=== PATIENT | male | born 1965 | race Caucasian/White ===

== ENCOUNTER → 2023-07-18 13:17 | Outpatient (REF) | payer BC, SELFPAY | LOC: RAD 13:17 | PROVIDERS: ATTENDING PHYSICIAN Psychiatry & Neurology Neurology | DX: M54.2 Cervicalgia (principal); Z87.39 Personal history of other diseases of the musculoskeletal system and connective tissue | CPT/HCPCS: 70100; 72052 ==

== ENCOUNTER → 2023-08-03 15:44 | Outpatient (REF) | payer BC, SELFPAY | LOC: RAD 15:44 | PROVIDERS: ATTENDING PHYSICIAN Family Medicine | DX: M25.551 Pain in right hip (principal); M54.50 Low back pain, unspecified | CPT/HCPCS: 72110; 73502 ==

== ENCOUNTER → 2023-08-14 14:33 | Outpatient (REF) | payer BC, SELFPAY | LOC: PAVMRI 14:33 | PROVIDERS: ATTENDING PHYSICIAN Physician Assistant Medical; FAMILY PHYSICIAN Family Medicine | DX: M54.2 Cervicalgia (principal); M79.601 Pain in right arm; M47.12 Other spondylosis with myelopathy, cervical region | CPT/HCPCS: 72141 ==

== ENCOUNTER 2023-09-18 18:32 | Outpatient (RCR) | payer BC, SELFPAY | END 2023-09-18 23:59 | disposition home or self-care (01) | LOC: RPT 18:32 | PROVIDERS: ATTENDING PHYSICIAN Physician Assistant Medical; FAMILY PHYSICIAN Family Medicine | DX: M54.2 Cervicalgia (principal); M79.601 Pain in right arm; Z73.6 Limitation of activities due to disability | CPT/HCPCS: 97110; 97112; 97140; 97163 ==

== ENCOUNTER 2023-10-09 17:47 | Outpatient (RCR) | payer BC, SELFPAY | END 2023-10-09 23:59 | disposition home or self-care (01) | LOC: RPT 17:47 | PROVIDERS: ATTENDING PHYSICIAN Physician Assistant Medical; FAMILY PHYSICIAN Family Medicine | DX: M54.2 Cervicalgia (principal); M79.601 Pain in right arm; M47.12 Other spondylosis with myelopathy, cervical region; Z73.6 Limitation of activities due to disability | CPT/HCPCS: 97010; 97110; 97112; 97140 ==

== ENCOUNTER 2023-11-15 16:38 | Outpatient (RCR) | payer BC, SELFPAY | END 2023-11-15 23:59 | disposition home or self-care (01) | LOC: RPT 16:38 | PROVIDERS: ATTENDING PHYSICIAN Physician Assistant Medical; FAMILY PHYSICIAN Family Medicine | DX: M54.2 Cervicalgia (principal); M79.601 Pain in right arm; M47.12 Other spondylosis with myelopathy, cervical region; Z73.6 Limitation of activities due to disability | CPT/HCPCS: 97010; 97110; 97112; 97140 ==

== ENCOUNTER 2023-12-04 17:55 | Outpatient (RCR) | payer BC, SELFPAY | END 2023-12-04 23:59 | disposition home or self-care (01) | LOC: RPT 17:55 | PROVIDERS: ATTENDING PHYSICIAN Physician Assistant Medical; FAMILY PHYSICIAN Family Medicine | DX: M54.2 Cervicalgia (principal); M79.601 Pain in right arm; M47.12 Other spondylosis with myelopathy, cervical region; Z73.6 Limitation of activities due to disability | CPT/HCPCS: 97010; 97110; 97112; 97140 ==

== ENCOUNTER → 2023-12-15 11:51 | Outpatient (REF) | payer BC, SELFPAY ==
[2023-12-15 12:18] LABS: Urine Albumin Negative (Neg - Trace); Urine Bilirubin Negative (Negative); Urine Character Clear (Clear); Urine Color Yellow; Urine Glucose Negative (Negative); Urine Ketone Negative (Negative); Urine Leukocyte Negative (Negative); Urine Nitrite Negative (Negative); Urine Occult Blood Negative (Negative); Urine Urobilinogen Negative (Neg - 1+)
== END ==
LOC: REG 11:51
PROVIDERS: ATTENDING PHYSICIAN Specialist; FAMILY PHYSICIAN Family Medicine
DX: N39.0 Urinary tract infection, site not specified (principal)
CPT/HCPCS: 36415; 81003; 87086

== ENCOUNTER → 2024-10-14 12:16 | Outpatient (REF) | payer OTHER, SELFPAY | LOC: PAVMRI 12:16 | PROVIDERS: ATTENDING PHYSICIAN Psychiatry & Neurology Neurology; FAMILY PHYSICIAN Family Medicine | DX: G43.011 Migraine without aura, intractable, with status migrainosus (principal); G89.29 Other chronic pain | CPT/HCPCS: 72141 ==

== ENCOUNTER 2024-10-23 06:19 | Day surgery (SDC) | payer OTHER, SELFPAY | END 2024-10-23 11:35 | disposition home or self-care (01) | LOC: GI 06:19 | PROVIDERS: ATTENDING PHYSICIAN Internal Medicine Gastroenterology | DX: Z12.11 Encounter for screening for malignant neoplasm of colon (principal); K57.30 Diverticulosis of large intestine without perforation or abscess without bleeding; K64.8 Other hemorrhoids; Z86.0100 Personal history of colon polyps, unspecified | CPT/HCPCS: G0105 ==

== ENCOUNTER 2025-01-07 12:06 | Outpatient (RCR) | payer OTHER, SELFPAY | END 2025-01-07 23:59 | disposition home or self-care (01) | LOC: RPT 12:06 | PROVIDERS: ATTENDING PHYSICIAN Psychiatry & Neurology Neurology; FAMILY PHYSICIAN Family Medicine | DX: M54.2 Cervicalgia (principal); Z73.6 Limitation of activities due to disability; M62.81 Muscle weakness (generalized); G43.909 Migraine, unspecified, not intractable, without status migrainosus; C85.90 Non-Hodgkin lymphoma, unspecified, unspecified site | CPT/HCPCS: 97010; 97110; 97140; 97162; 97530 ==

== ENCOUNTER 2025-02-16 09:33 | Outpatient (RCR) | payer OTHER, SELFPAY | END 2025-02-16 23:59 | disposition home or self-care (01) | LOC: RPT 09:33 | PROVIDERS: ATTENDING PHYSICIAN Psychiatry & Neurology Neurology; FAMILY PHYSICIAN Family Medicine | DX: M54.2 Cervicalgia (principal); Z73.6 Limitation of activities due to disability; M62.81 Muscle weakness (generalized); G43.909 Migraine, unspecified, not intractable, without status migrainosus; C85.90 Non-Hodgkin lymphoma, unspecified, unspecified site | CPT/HCPCS: 97010; 97110; 97112; 97140 ==